=== PATIENT | male | born 1965 | race Two or more races ===

== ENCOUNTER 2021-10-29 16:53 | Inpatient (IN) | payer OTHER ==
[~2021-10-29] VITALS: Ht 172.7 cm; Wt 81.6 kg
[2021-10-29] MEDS ORDERED: METFORMIN HCL500 M3 (17:06)
[2021-10-29] MEDS ORDERED: GLIMEPIRIDE2 MG (17:07)
[2021-10-29] MEDS ORDERED: ZOCOR20 MG PO (17:07)
[2021-10-30] MEDS ORDERED: SILDENAFIL CIT100 MG (09:40)
== END 2021-10-30 20:39 | disposition home or self-care (01) | DRG 311 ==
LOC: ER 16:53 → MEDJ 23:16 → MEDI 23:16 → MEDJ 10-30 10:26
PROVIDERS: ADMIT Internal Medicine; ATTEND Internal Medicine
PROC: B24BZZZ Ultrasonography of Heart with Aorta (ICD-10-PCS; principal; 2021-10-30)
PROC: 4A12X4Z Monitoring of Cardiac Electrical Activity, External Approach (ICD-10-PCS; 2021-10-30)
DX: I20.0 Unstable angina (principal); R07.89 Other chest pain; R94.31 Abnormal electrocardiogram [ECG] [EKG]; F14.10 Cocaine abuse, uncomplicated; I10 Essential (primary) hypertension; E11.65 Type 2 diabetes mellitus with hyperglycemia; Z79.4 Long term (current) use of insulin; Z20.822 Contact with and (suspected) exposure to COVID-19

== ENCOUNTER 2021-11-27 17:31 | Emergency (ER) | payer OTHER ==
[~2021-11-27] VITALS: Ht 172.7 cm; Wt 77.1 kg
[~2021-11-27 17:31] MED LIST: GLIMEPIRIDE2 MG; METFORMIN HCL500 M3; SILDENAFIL CIT100 MG; ZOCOR20 MG PO
== END 2021-11-27 20:08 | disposition home or self-care (01) ==
LOC: ER 17:31
DX: R07.89 Other chest pain (principal)